=== PATIENT | female | born 1990 | race Caucasian/White ===

== ENCOUNTER → 2017-09-02 13:58 | Outpatient (CLI) | payer MEDICAID, SELFPAY ==
[2017-09-05 11:43] LABS: HPV Reflexed? NOT INDICATED
== END ==
PROVIDERS: Visit Provider Obstetrics & Gynecology
DX: Z01.419 Encounter for gynecological examination (general) (routine) without abnormal findings (principal)
CPT/HCPCS: 88175; G0145

== ENCOUNTER 2018-11-28 15:59 | Emergency (ER) | payer SELFPAY ==
[2018-11-28 16:03] VITALS: BP 144/116; PULSE 109; RESP 18; TEMP 37.1; O2SAT 97; BMI 27.3
[2018-11-28] MEDS: Lidocaine/Epi/Tetracaine 50 ML 1 APPLIC TOPICAL (17:16)
[2018-11-28 17:18] VITALS: PULSE 110; RESP 18; TEMP 37.1; O2SAT 98
--- NOTE | 2018-11-28 18:16 | ED.DCSUM_ITS ---
- ER Visit Summary Date of Service: 11/28/18 Chief Complaint: Left facial swelling and pain after popping a facial pimple History of Present Illness: The patient is a 28 F that she has small pimple in her left face for approximately a week. She popped it today and now has more pain and swelling of her face. No fever. No trouble swallowing or breathing. No chills. No headache. Physical Examination: Well-appearing female no acute distress vital signs stable and afebrile. HEENT exam shows facial swelling her left cheek. There is really no cellulitis. Pupils round reactive eyes are intact. There is no involvement of the eye or the eye socket. She did close her mouth and a difficulty. No trouble breathing swallowing neck nontender no lymphadenopathy. There is tenderness to her left side of her face. Lungs clear to auscultation bilaterally. Heart regular rhythm no murmur. Abdomen soft nontender. Moving all 4 extremities. Neurologically awake and alert. Test Results: None Emergency Department Course and Treatment: Discussed with the patient I think this is just soft tissue swelling and infection from the acne. She wants me to attempt to drain and I explained to her that I am happy to try but only expect her to be much of a pus pocket. Or a subcu abscess. Let was applied to the area. Area was cleaned. I injected about 3 6 cc of lidocaine. Made a small stab wound with a 11 blade scalpel. There was minimal pus was mostly blood. Most of this is hematoma from her squeezing the skin and also soft tissue infection. Treatment Plan: Patient given 2 Vicodin here for pain. Started on Keflex and Bactrim. Some both Keflex and Bactrim for 10 days. Patient Motrin and Cuttyhunk for pain. Warm compresses. And follow-up with her primary care physician [facility] practice next week return if worse. Disposition: Discharge Impression: Left facial soft tissue infection I&D by ER This note was generated with [employer] dictation software. It may contain incorrect words, spelling, and punctuation that were not noted in review of the chart prior to signing ED Disposition - Plan for ED Patient: Referrals: Care Physician,No Primary [Primary Care Provider] -
--- NOTE | 2018-11-28 18:19 | DCINST.ED_ITS ---
ED Disposition - Plan for ED Patient: Disposition: Home or Assisted Living Instructions: Cellulitis Prescriptions: Smz/Tmp Ds [Bactrim Ds] 1 tab PO BID #20 tab Prescription Printed Cephalexin [Keflex] 500 mg PO Q6 #40 cap Prescription Printed Hydrocodone Bitart/Apap 5-325 [[place] 5MG-325MG] 1 tab PO Q4H PRN PRN 2 Days #20 tab PRN Reason: Pain Prescription Printed Additional Instructions: Dear done at [facility] in the next several days. Warm compresses your face. Motrin and limited [place] for pain. Do not drive using the [place]. Do not drink using the [place]. Both Keflex and Bactrim or antibiotic she need to take for the next 10 days. Bactrim 1 pill twice a day. Keflex 1 pill 4 times a day. This should progressively get better if it is getting worse follow-up or return to the ER.
[2018-11-28] MEDS: HYDROcodone Bitartrate/Apap 5/325 Tablet PO (18:37)
[2018-11-28] MEDS: Cephalexin 250 MG Capsule 500 MG PO (18:38)
[2018-11-28] MEDS: Smz/Tmp Ds Tablet 1 TABLET PO (18:38)
== END 2018-11-28 19:01 | disposition home or self-care (01) ==
PROVIDERS: Emergency Provider Emergency Medicine
DX: L03.211 Cellulitis of face (principal); Z72.0 Tobacco use
CPT/HCPCS: 10060; 99283

== ENCOUNTER 2018-12-01 12:38 | Inpatient (IN) | payer SELFPAY ==
[2018-12-01 12:40] VITALS: BP 130/81; PULSE 122; RESP 16; TEMP 36.9; O2SAT 98; BMI 27.4
--- NOTE | 2018-12-01 12:58 | CT_ITS ---
STUDY: CT FACIAL BONES WITH CONTRAST REASON FOR EXAM: Female, 28 years old. Left facial swelling. RADIATION DOSAGE (If Supplied By Facility): CTDIvol = ( 33.45 ) mGy, DLP = ( 637.51 ) mGycm TECHNIQUE: The patient was scanned in a multi detector CT scanner. Transaxial imaging was performed following the intravenous administration of 75 IV Isovue 370. Sagittal and coronal images were reconstructed. Individualized dose optimization techniques were used for this CT. COMPARISON: None. FINDINGS: Diffuse subcutaneous edema overlying the left facial region with overlying skin thickening. Focal phlegmon is seen overlying the left masseter muscle although no focal abscess is present at this time. Normal orbital castillo and orbital contents. Normal nasal bones and anterior nasal spine. Normal facial bones. There is no demonstrated fracture. Partial opacification of the left maxillary sinus. Mucosal thickening of the ethmoid sinuses. CT/Sinus/Facial Bone WITH Contras IMPRESSION: Soft tissue swelling overlying the left facial region with a focal phlegmon overlying the left anterior mesentery muscle. This is suggestive of a cellulitis. No drainable abscess is seen at this time. Electronically Signed: Blu Jang, at 15:07 EDT , Service support ,
--- NOTE | 2018-12-01 13:00 | ED.VIS.GEN ---
History of Present Illness Chief Complaint: Abscess Informant: Patient Onset: Days - 3 Context: Gradual Onset Timing: Continuous Quality: pain Location: left face Current Severity: Severe Maximum Severity: Severe Worsened by: palpation Relieved by: nothing Associated Symptoms: purulent d/c. no systemic sx or fevers. Narrative: Patient seen here 2 days ago where she had aspiration of this area with a scant amount of purulent material, placed on cephalexin and Bactrim which she has been taking since it was prescribed 2 days ago. Despite this, she has had worsening of the area to a significant degree with swelling progressing around her left eye and over toward the other side of her face. She has had no dental pain or tooth issues. She states it started with a pimple on her face. Past Medical History - Allergies and Home Meds Allergies/Adverse Reactions: Allergies No Known Allergies Allergy (Verified 12/01/18 12:42) Primary Care Physician: Care Physician,No Primary [Primary Care Provider] - Past Medical History: None Smoking Status: Current every day smoker Drugs: None Review of Systems General: Denies: Chills, Fever Eyes: Denies: Visual changes - bilaterally, Diplopia ENT: Reports: - - Left facial pain, swelling. Denies: Rhinorrhea, Sore throat Cardiovascular: Denies: Chest pain, Palpitations Respiratory: Denies: Dyspnea, Cough, Dyspnea on exertion Gastrointestinal: Denies: Abdominal pain, Nausea, Vomiting, Diarrhea, Melena, Hematochezia Genitourinary: Denies: Dysuria, Hematuria, Frequency Musculoskeletal: Denies: Back pain, Extremity Pain Skin: Reports: Abscess. Denies: Rash, Wounds Neurological: Denies: Headache, Weakness, Numbness Physical Exam Vital Signs/Narrative: Vital Signs Temp Pulse Resp BP Pulse Ox 12/01/18 12:40 98.4 F 122 H 16 130/81 H 98 Inital Vital Signs reviewed: Yes General: Well nourished, Well developed, No Acute Distress Head: Normocephalic, Atraumatic Eyes: Perrl, EOMI ENT: Moist mucous membranes, No rhinorrhea, - - Obvious cutaneous abscess left mid face/cheek, actively draining purulent material, indurated, pointing. Difficult to discern exact extent, progresses toward left eye, there is periorbital swelling and erythema throughout the left face, the jaw is spared. + trismus, no dental tenderness. Neck: Supple, Nontender Cardiovascular: Regular rate, Regular rhythm, No murmurs Respiratory: No distress, CTA bilaterally, Chest nontender Abdomen: Soft, Nontender, Nondistended, Normal bowel sounds Back: Nontender, Normal Inspection Extremities: Nontender, No edema Skin: - - erythemetous tender abscess left midface Neurological: Alert, Oriented x3, Cranial nerves II-XII grossly intact, Normal Strength, Normal Sensation, Normal Gait Psychological: Tearful Diagnostic/Tx/Re-eval - Medical Decision Making This is a large facial abscess that is likely MRSA and has grown quickly despite being on appropriate antibiotic treatment/therapy. I am concerned about cosmetics, as well as the patient tolerating the necessary incision and drainage this will require. This reason I think she will be better served in the operating room, I discussed with Dr. Espinal with plastics who agrees, and will admit her. He requests IV contrasted CT which is being obtained in addition to blood work and IV vancomycin empirically. She is not clinically septic and is clinically stable. ED Disposition - Plan for ED Patient: Disposition: Acute Care Hospital [facility] Diagnosis: Cutaneous abscess of face, Failure of outpatient treatment
[2018-12-01] MEDS: Morphine 4 MG/ML Syringe IV (13:22)
[2018-12-01] MEDS: Ondansetron 4 MG/2 ML Vial IV (13:22)
--- NOTE | 2018-12-01 13:22 | CASEMGMT ---
RN CM Assessment Introduced role of RN CM to patient.? Patient is alert, oriented and able?to participate in RN CM Assessment. ?Patient currently in pain during assessment answering questions with short answers. Care providers, pharmacy, and demographics verified. Presentation: Left face- started with pimple on her face and seen in ER 11/28/18- had an aspiration to the area with scant amount Purulent drainage and placed on Cephalexin and Bactrim. Has been taking it since prescribes, however c/o worsening to the area with significant swelling progressing around Lt eye and over toward other side of face. Re-Admit: No. ER 11/28/18 for Lt face Cellulitis Barriers/Issues: Patient states does not have Health Insurance PCP: [facility] has a PCP at [facility] Specialists: None Preferred Pharmacy: [facility] Insurance: None Rx Benefit: None? LNOK: None addressed at this time LW/HPOA: None, Denies offered information Living Arrangements:?Lives with aunt in a 2 story home, patient Bedroom on [facility], 3-4 steps to enter. ADL?s: Independent with ambulation and ADLs Transportation: Patient normally walks or family/friends. Upon DC- Family or friends. DME: None HHC: None SNF: None Goal: Home, Aware CM remains available for any emerging needs. DC PLAN: Home, SW/CM to f/u for assistance re: No health Insurance. CHRISTELLE Ho
[2018-12-01 13:47] LABS: Absolute Lymphocyte Count 2.37 X10^3/uL (0.83-4.51); Absolute Neutrophil Count 7.8 X10^3/uL (2.0-7.7); Basophil# 0.04 X10^3/uL; Basophil% 0.4 % (0-1); Eosinophil# 0.26 X10^3/uL; Eosinophils% 2.3 % (0-5); Hematocrit 45.4 % (37-47); Hemoglobin 14.7 g/dL (12.0-15.0); Lymphocyte # 2.37 X10^3/ul (4.0); Lymphocyte % 21.1 % (19-41); Mean Corp Hgb Conc 32.4 g/dL (32-36); Mean Corpuscular Hgb 29.5 pg (27.0-32.0); Mean Corpuscular Volume 91.2 fL (81-99); Mean Platelet Vol. 8.9 fl (6.2-12.0); Monocyte# 0.69 X10^3/uL; Monocyte% 6.1 % (0-10); NRBC Flagged by Analyzer 0 % (0-5); Neutrophil # 7.81 X10^3/uL (2.7-7.7); Neutrophil % 69.6 % (47-70); Platelet Count 308 K/mm3 (150-450); RBC Distribution Width CV 14.1 % (11.6-14.6); RBC Distribution Width SD 47.2 fl (35.1-43.9); Red Blood Count 4.98 M/mm3 (4.2-5.4); White Blood Count 11.2 K/mm3 (4.4-11.0)
[2018-12-01 13:55] LABS: Anion Gap 2 (5-15); BUN 15 mg/dL (7-18); BUN/Creat Ratio 18.9 RATIO (10-20); Calcium,Total 9.2 mg/dL (8.5-10.1); Chloride 102 mmol/L (98-107); Creatinine, Serum 0.79 mg/dL (0.55-1.02); EST Glomerular Filtration Rate 92 mL/min (>60); Est Glom Filt Rate - Afr Amer 111 mL/min (>60); Glucose 80 mg/dL (74-106); Potassium 4.1 mmol/L (3.5-5.1); Sodium Level 136 mmol/L (136-145)
[2018-12-01 14:34] VITALS: BMI 27.5
[2018-12-01 15:23] VITALS: BMI 26.9
[2018-12-01 15:27] VITALS: BP 107/50; PULSE 80; RESP 14; TEMP 36.8; O2SAT 99
[2018-12-01] MEDS: Lactated Ringers 1,000 ML 60 ML IV (15:39)
[2018-12-01] MEDS: HYDROmorphone 1 MG/ML Syringe IV ×2 (16:10→21:13)
--- NOTE | 2018-12-01 16:17 | PCM.RX.CS ---
Consult Pharmacy has been consulted to manage selected antiobiotic: Vancomycin Type of Consult: New start Suspected Infection: Skin/Soft tissue Prior Doses of Antibiotics Received/Current Regimen: Received 1250mg IV x1 in E.R. today at 13:24 Labs: Sodium 136 mmol/L (136-145) 12/01/18 13:10 Potassium 4.1 mmol/L (3.5-5.1) 12/01/18 13:10 Chloride 102 mmol/L (98-107) 12/01/18 13:10 Carbon Dioxide 32.0 mmol/L (21.0-32.0) 12/01/18 13:10 2 (5-15) L 12/01/18 13:10 BUN 15 mg/dL (7-18) 12/01/18 13:10 0.79 mg/dL (0.55-1.02) 12/01/18 13:10 Est GFR (MDRD) Af Amer 111 mL/min (>60) 12/01/18 13:10 Est GFR (MDRD) Non-Af 92 mL/min (>60) 12/01/18 13:10 18.9 RATIO (10-20) 12/01/18 13:10 Glucose 80 mg/dL (74-106) 12/01/18 13:10 Weight used for dosin.6 kg Estimated Creatinine Clearance: 111 ml/min Goal Trough: 10-15 mcg/mL Pharmacy Plan for Drug Dosing: Continue therapy with 1250mg IV q12h to start 12 hours after the E.R. dose. Obtain a trough level before the 4th total dose. Pharmacy Service will continue to monitor and adjust dosing as required. Follow-Up Labs: Trough Vancomycin Labs to be done on [date and time ordered]: 12/03/18 00:30
--- NOTE | 2018-12-01 17:45 | PCM.HP.STD ---
History of Present Illness Date of Admission: 12/01/18 Chief Complaint: left cheek abscess, failed outpatient therapy. The patient is a 28 year old F who presented to the ED with increased redness and pain and swelling left cheek that started a few days ago. She states she had a pimple on her left cheek that she scratched and it subsequently enlarged. She went to the ED 2 days ago where an incision and drainage was attempted. A scant amount of purulent material was expressed. She was placed on Cephalexin and Bactrim. Despite these antibiotics, she had worsening symptomatology which prompted her trip to the ED. WBC was 11.2. Because of her worsening symptomatology it was felt she needed admission to the hospital and IV antibiotics since she failed outpatient therapy. Vancomycin was started. A CT of the face was done which showed a phlegmon over the masseter. No obvious abscess seen. She denies fever. She denies trauma. She denies dental pain or tooth issues. I was asked to evaluate this patient for surgical options for treatment. Past Medical History Past Medical History (Chronic Problems): Chronic Problems Smoker (Chronic) Allergies No Known Allergies Allergy (Verified 12/01/18 12:42) Home Medications: Ambulatory Orders Medication Instructions Recorded Ibuprofen 400 mg PO Q4H PRN PRN 12/01/18 Smz/Tmp Ds [Bactrim Ds] 1 tab PO BID 12/01/18 Diazepam [Valium] 5 mg PO TID PRN #20 tab 12/03/18 Docusate Sodium [Colace] 100 mg PO BID #60 cap 12/03/18 Doxycycline 100 mg PO BID #28 cap 12/03/18 hydrocodone 5 mg-acetaminophen 325 1 tab PO Q4H PRN PRN 7 Days #40 tab 12/04/18 mg tablet Surgical History: no surgical history Psychiatric History: No pertinent psych hx 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 Denies: Chills, Fever, Weight Change Eyes: Denies: Pain HEENT: Denies: Ear Pain, Nasal Congestion, Sore Throat Cardiovascular: Denies: Chest Pain Respiratory: Reports: - - patient is a smoker.. Denies: Cough Gastrointestinal: Denies: Constipation, Diarrhea, Nausea, Vomiting Genitourinary: Denies: Frequency, Hematuria Musculoskeletal: Denies: Back Pain, Foot Pain, Leg Pain, Neck Pain Skin: Reports: - - has left cheek abscess with pururlent drainage. The mass is indurated. There is surrounding redness and swelling. Tender to palpation. Left periorbital tissue is swollen. Can open her left eye just a little bit. Neurological: Reports: - - has an asymmetric smile on the left secondary to the swelling from the infection.. Denies: Headaches Endocrine: Denies: Heat/ Cold Intolerance, Polydipsia, Polyuria Hematologic/ Lymphatic: Denies: Anemia, Easy Bruising, Hx of blood clot VTE Information - Inpt Only VTE Present on Admission: No VTE Mechan Device Prophylaxis: SCD's VTE Pharm Prophylaxis ordered?: No - Physical Exam General: Alert, Oriented x3 HEENT: PERRLA, EOMI Oral: Moist Mucosa, - - no obvious periodontal disease. No teeth pain. occlusion intact. Neck: Supple, No Nodes Lungs: Clear to auscultation Cardiovascular: Regular rate, Regular Rhythm Abdomen: Soft, Non-Distended Extremities: No clubbing, No cyanosis, No edema Skin: - - left cheek abscess with some purulent drainage. Ulcerated area has some induration. Measures 2 cm. Surrounding redness and swelling and tenderness. Additional 5 cm. Some left periorbital swelling. Lymphatic: - - no cervical adenopathy. Neurological: Cranial nerves II-XII grossly intact - except for left buccal branch of facial nerve as there is some asymmetry in her smile probably from surrounding swelling from the infection. Psych/Mental Status: Normal Affect, Appropriate Vital Signs Temp Pulse Resp BP Pulse Ox 98.3 F 80 14 107/50 L 99 12/01/18 15:27 12/01/18 15:27 12/01/18 15:27 12/01/18 15:27 12/01/18 15:27 Oxygen Delivery Method Room Air Weight: 181 lb 14.102 oz Body Mass Index (BMI) 26.9 Laboratory Tests Past 24 Hrs 12/01/18 12/01/18 13:10 13:10 WBC 11.2 H RBC 4.98 Hgb 14.7 Hct 45.4 MCV 91.2 MCH 29.5 MCHC 32.4 RDW Std Deviation 47.2 H RDW Coeff of Rosita 14.1 Plt Count 308 MPV 8.9 Immature Gran % (Auto) 0.500 Neut % (Auto) 69.6 Lymph % (Auto) 21.1 [place] % (Auto) 6.1 Eos % (Auto) 2.3 Baso % (Auto) 0.4 Absolute Neuts (auto) 7.8 H Absolute Lymphs (auto) 2.37 Absolute Nucleated RBC 0.00 Nucleated RBC % 0 Sodium 136 Potassium 4.1 Chloride 102 Carbon Dioxide 32.0 Anion Gap 2 L BUN 15 Creatinine 0.79 Estim Creat Clear Calc 110.80 Est GFR (MDRD) Af Amer 111 Est GFR (MDRD) Non-Af 92 BUN/Creatinine Ratio 18.9 Glucose 80 Calcium 9.2 Assessment/Plan All Active Problems Cellulitis diffuse, face (Acute) Swelling of face (Acute) Cutaneous abscess of face (Acute) Failure of outpatient treatment (Acute) Surveillance of implantable subdermal contraceptive (Acute) 1. Draining left cheek abscess with surrounding induration and cellulitis. 2. Left cheek swelling. 3. Failure of outpatient treatment. 4. Smoker. CT reviewed. Patient has worsening left cheek abscess with increasing redness and swelling and pain after a trial of po antibiotics at home. After failing outpatient therapy, it was felt she needed IV antibiotics and probable surgery intervention with surgical preparation left cheek with incision and drainage and excisional debridement abscess. Initial WBC was 11.2. Will start her on Vancomycin. Will also apply warm compresses to promote drainage. Unless dramatic improvement is seen in her symptomatology, will need operative intervention. Will plan on surgery tomorrow. Depending on what is found at surgery, emt intermediate IV antibiotics may be necessary and a PICC line would be placed. Will leave the wound open and start postop wound care with daily Silver dressings. If there is a plateau in the healing process, can proceed with delayed closure with a local skin flap reconstruction. Anticipate increased metabolic demands from the infection and from the surgery. Will check a Prealbumin and encourage nutritional supplementation with protein to help the healing process. Patient was informed of the risks and complications of the procedure including alternatives to surgery. These were discussed with the patient personally. Patient voices understanding and wishes to proceed. She understands that the would will be left open initially. Encouraged patient to stop smoking as it may have deleterious effects on wound healing. Code Visit Inpatient E&M: 84100 Init Hosp L2 - ICD-10 - L02.01, L03.211, R22.0, Z78.9, F17.200
[2018-12-01] MEDS: oxyCODONE 5 MG Tablet 10 MG PO (18:55)
[2018-12-01 21:10] VITALS: BP 121/64; PULSE 95; RESP 18; TEMP 36.8; O2SAT 96
[2018-12-01] MEDS: Docusate Sodium 100 MG Capsule PO (21:12)
[2018-12-02] VITALS (10 sets, daily range): BP systolic 99–126; BP diastolic 50–84; PULSE 65–84; RESP 12–18; TEMP 36.2–36.7; O2SAT 95–99; BMI 26.9
[2018-12-02] MEDS: oxyCODONE 5 MG Tablet 10 MG PO ×3 (01:25→16:47)
[2018-12-02] MEDS: HYDROmorphone 1 MG/ML Syringe IV ×3 (04:28→20:51)
[2018-12-02 05:07] LABS: Internal QC Validated? YES +Cl - CLEAR BKGD; Pregnancy, Urine Negative Negative
[2018-12-02 05:42] LABS: Hematocrit 40.4 % (37-47); Hemoglobin 12.8 g/dL (12.0-15.0); Mean Corp Hgb Conc 31.7 g/dL (32-36); Mean Corpuscular Hgb 29.2 pg (27.0-32.0); Mean Corpuscular Volume 92.2 fL (81-99); Mean Platelet Vol. 8.8 fl (6.2-12.0); Platelet Count 259 K/mm3 (150-450); RBC Distribution Width CV 13.6 % (11.6-14.6); RBC Distribution Width SD 46.6 fl (35.1-43.9); Red Blood Count 4.38 M/mm3 (4.2-5.4); White Blood Count 7.6 K/mm3 (4.4-11.0)
[2018-12-02 05:43] LABS: Erythrocyte Sedimentation Rate 33 mm/hr (0-20)
[2018-12-02 06:22] LABS: ALB/GLOB Ratio 0.7 RATIO (0.9-2.4); AST(SGOT) 11 U/L (15-37); Alanine Aminotransfer ALT/SGPT 22 U/L (13-56); Albumin, Serum 2.8 g/dL (3.2-5.0); Alkaline Phosphatase 69 U/L (45-117); Anion Gap 8 (5-15); BUN 16 mg/dL (7-18); BUN/Creat Ratio 24.2 RATIO (10-20); Calcium,Total 8.7 mg/dL (8.5-10.1); Chloride 100 mmol/L (98-107); Creatinine, Serum 0.66 mg/dL (0.55-1.02); EST Glomerular Filtration Rate 113 mL/min (>60); Est Glom Filt Rate - Afr Amer 136 mL/min (>60); Estimated Creatinine Clearance 128.02 ml/min; Globulin 4.3 g/dL (2.2-4.2); Glucose 92 mg/dL (74-106); Potassium 4.6 mmol/L (3.5-5.1); Protein, Total 7.1 g/dL (6.4-8.2); Sodium Level 137 mmol/L (136-145)
[2018-12-02] MEDS: Lactated Ringers 1,000 ML 60 ML IV (08:44)
[2018-12-02] MEDS: Docusate Sodium 100 MG Capsule PO ×2 (08:44→22:22)
[2018-12-02] MEDS: 0.9% NaCl Peripheral Flush Adult/Peds IV (08:44)
--- NOTE | 2018-12-02 09:31 | CASEMGMT ---
SW spoke with patient briefly as she was sleeping and SW woke her up. She said she is staying in [place] and she is in the process of moving to [place] from [place]. She has not completed a Medicaid application. SW gave her a Medicaid application to complete and told her to let the nurse know when she is done or ask for SW. MARLIN explained she may have IV antibiotics at d/c and she will need Medicaid to assist with cost. Roxanna REEVES LEAD WEB DEVELOPER
--- NOTE | 2018-12-02 11:49 | NURSING ---
report called to COLLEEN CAMPBELL
--- NOTE | 2018-12-02 13:00 | ABS_PTH ---
PATIENT: TRISTON RIDER LOC: PCU U#:[id number] AGE/SX: 28/F ROOM: [facility] RE12/01/[address]: Dr. Ian Espinal MD : 1990 BED: 1 DIS: 12/03/2018 SPEC #: [id number] RECD: 12/02/18 16:32 STATUS: TAMARA RECharmaine #: [id number] CHERI: 12/02/18 13:[address]: Ian Espinal DEPT: SURGICAL PATHOLOGY RECD BY: Juvenal Maier ENTERED: 12/03/18 09:14 SP TYPE: Abscess OTHR DR: No Primary Care Phys Tissues: Cheek, NOS Procedures: Surgery Specimen Level IV HEADER OPERATION: Incision & drainage facial abscess, cheek PRE-OP DIAGNOSIS: Draining left cheek abscess with surrounding induration and cellulitis TISSUE SUBMITTED: Left cheek abscess MICROSCOPIC DIAGNOSIS Left cheek abscess, biopsy: Ulceration with associated acute and chronic inflammation, abscess formation and fat necrosis. AM:rajeev 12/04/18 MICROSCOPIC DESCRIPTION Slides are reviewed. GROSS DESCRIPTION Received in fixative is one container labeled with the patient's name and designated left cheek abscess. The specimen consists of an irregular fragment of skin with attached yellow fatty tissue measuring 1.5 x 1 cm and a depth of excision measuring 1.2 cm. The specimen is inked, sectioned and totally submitted in two cassettes. / AM:rajeev 12/03/18 TC:2 CPT: 33218
--- NOTE | 2018-12-02 13:52 | OP.PCM_ITS ---
Report of Operation Date of Procedure: 12/02/18 Pre-Operative Diagnosis: 1. Draining left cheek complex abscess with surr ounding induration and cellulitis. 2. Left cheek swelling. 3. Failure of outpatient treatment. 4. Smoker. Post-Operative Diagnosis: Same. Surgery/Procedure Performed:: Surgical preparation left cheek with incision and drainage and excisional debridement complex abscess (4.05 cm2). Description of Surgical Findings:: The patient is a 28 year old F who presented to the ED with increased redness and pain and swelling left cheek that started a few days ago. She states she had a pimple on her left cheek that she scratched and it subsequently enlarged. She went to the ED 2 days ago where an incision and drainage was attempted. A scant amount of purulent material was expressed. She was placed on Cephalexin and Bactrim. Despite these antibiotics, she had worsening symptomatology which prompted her trip to the ED. WBC was 11.2. Because of her worsening symptomatology it was felt she needed admission to the hospital and IV antibiotics since she failed outpatient therapy. Vancomycin was started. A CT of the face was done which showed a phlegmon over the masseter. No obvious abscess seen. She denies fever. She denies trauma. She denies dental pain or tooth issues. I was asked to evaluate this patient for surgical options for treatment. Patient was informed of the risks and complications of the procedure including alternatives to surgery. These were discussed with the patient personally. Patient voices understanding and wishes to proceed. Encouraged patient to stop smoking as it may have deleterious effects on wound healing. Size of defect left cheek - 2.7 x 1.5 x 1 cm. statistical methods teacher: Garland Toscano. Type of Anesthesia:: General Specimen's removed: 1. Abscess left cheek to Pathology and Microbiology. 2. MRSA Wound DNA by PCR. Drains: None. Estimated Blood Loss (mL): 10 ml. Description of Procedure: Patient was taken to OR in supine position and was placed under general anesthesia. The left cheek area was prepped and draped in the usual fashion. SCD's were placed for DVT prophylaxis. Perioperative antibiotics were given intravenously. Using xylocaine with epinephrine, the left cheek area was infiltrated for postop pain relief. After waiting 5 minutes for the anesthetic to take effect, I made an incision around the area of greatest fluctuance and drainage. A fair amount of pus was seen. The pus was thick usually indicative of MRSA. A MRSA Wound DNA by PCR was done today. There was extensive fat necrosis and induration that extended superiorly and deeply into the facial musculature. This tissue was excised and debrided. The debridement extended down to the muscle. A curette was also used to debride exudate off the muscle. Due to the extensive amount of superiorly undermining, I extended the incision a little bit superiorly. I was conservative with the incision because it was on her face. Will see how much of the undermined area heals and what if any of the areas need further excision and debridement. Tissue debrided from the left cheek abscess was sent to Pathology for analysis to rule out carcinoma and to Microbiology for culture. A positive culture may necessitate antibiotic modification. The wound was irrigated with saline. Hemostasis was obtained with electrocautery. The size of the left cheek defect after incision and drainage and excisional debridement complex abscess was 2.7 x 1.5 x 1 cm or 4.05 cm2. The abscess wound was then dressed with Aquacel Silver followed by moistened 2x2 gauze followed by dry gauze dressing. Patient tolerated the procedure well and was sent to PACU in satisfactory condition. Patient will be sent upstairs for continued postop care. She will continue the Vancomycin and Zosyn until the culture results are back. If the MRSA screen shows positive for MRSA, will either continue the Vancomycin IV at home or send her home on po Doxycycline. Once the inflammation subsides and the infection is under control, may consider delayed closure with skin grating or skin flap reconstruction. Grafts/Implants Used: None. - Complications None. - Admit VTE Documentation VTE Present on Admission: No VTE Mechan Device Prophylaxis: SCD's VTE Pharm Prophylaxis ordered?: No Code Visit Surgery Charges CPT - 85125 ICD-10 - L02.01, R22.0, L03.211, A49.02, S01.402A, Z78.9, F17.200 43160 L02.01, R22.0, L03.211, A49.02, S01.402A, Z78.9, F17.200
[2018-12-02 15:23] LABS: Probe Check PASS; Staph aureus DNA By PCR POSITIVE (Negative)
[2018-12-02 15:24] LABS: M R Staph aureus DNA By PCR POSITIVE (Negative)
[2018-12-03 01:04] LABS: Vancomycin, Trough Level 1.5 ug/mL (5.0-15.0)
[2018-12-03 04:25] VITALS: BP 118/65; PULSE 67; RESP 18; TEMP 37; O2SAT 95
[2018-12-03] MEDS: Lactated Ringers 1,000 ML 60 ML IV (05:42)
[2018-12-03 06:01] LABS: Hemoglobin 11.9 g/dL (12.0-15.0); Mean Corp Hgb Conc 33.1 g/dL (32-36); Mean Corpuscular Hgb 28.9 pg (27.0-32.0); Mean Corpuscular Volume 87.4 fL (81-99); Mean Platelet Vol. 8.7 fl (6.2-12.0); Platelet Count 286 K/mm3 (150-450); RBC Distribution Width SD 41.4 fl (35.1-43.9); Red Blood Count 4.12 M/mm3 (4.2-5.4); White Blood Count 11.7 K/mm3 (4.4-11.0)
[2018-12-03 06:14] LABS: Anion Gap 6 (5-15); BUN 17 mg/dL (7-18); BUN/Creat Ratio 30.4 RATIO (10-20); Calcium,Total 8.5 mg/dL (8.5-10.1); Chloride 104 mmol/L (98-107); Creatinine, Serum 0.56 mg/dL (0.55-1.02); EST Glomerular Filtration Rate 137 mL/min (>60); Est Glom Filt Rate - Afr Amer 166 mL/min (>60); Estimated Creatinine Clearance 150.88 ml/min; Glucose 105 mg/dL (74-106); Potassium 4.2 mmol/L (3.5-5.1); Sodium Level 138 mmol/L (136-145)
[2018-12-03 08:31] VITALS: BP 115/62; PULSE 85; RESP 16; TEMP 36.2; O2SAT 100
[2018-12-03] MEDS: Docusate Sodium 100 MG Capsule PO (08:40)
[2018-12-03] MEDS: oxyCODONE 5 MG Tablet 10 MG PO ×2 (08:40→20:57)
[2018-12-03 11:58] VITALS: BP 103/39; PULSE 82; RESP 16; TEMP 36.2; O2SAT 98
[2018-12-03 12:48] LABS: Vancomycin, Trough Level 9.3 ug/mL (5.0-15.0)
[2018-12-03 15:02] VITALS: BP 116/62; PULSE 83; RESP 16; TEMP 36.2; O2SAT 100
[2018-12-03] MEDS: HYDROmorphone 1 MG/ML Syringe IV (15:31)
--- NOTE | 2018-12-03 16:17 | PCM.RX.CS ---
Consult Pharmacy has been consulted to manage selected antiobiotic: Vancomycin Type of Consult: Follow-up Suspected Infection: Skin/Soft tissue Prior Doses of Antibiotics Received/Current Regimen: VANCOMYCIN 1250MG IV Q12HR: 12/03 @0242, 12/03@1242 Labs: Sodium 138 mmol/L (136-145) 12/03/18 05:40 Potassium 4.2 mmol/L (3.5-5.1) 12/03/18 05:40 Chloride 104 mmol/L (98-107) 12/03/18 05:40 Carbon Dioxide 28.0 mmol/L (21.0-32.0) 12/03/18 05:40 6 (5-15) 12/03/18 05:40 BUN 17 mg/dL (7-18) 12/03/18 05:40 0.56 mg/dL (0.55-1.02) 12/03/18 05:40 Est GFR (MDRD) Af Amer 166 mL/min (>60) 12/03/18 05:40 Est GFR (MDRD) Non-Af 137 mL/min (>60) 12/03/18 05:40 30.4 RATIO (10-20) H 12/03/18 05:40 Glucose 105 mg/dL (74-106) 12/03/18 05:40 Vancomycin Trough 9.3 ug/mL (5.0-15.0) 12/03/18 12:05 Goal Trough: 10-15 mcg/mL Pharmacy Plan for Drug Dosing: The patient had a trough drawn which resulted in a value of 9.3 (drawn ~9.5hrs from last administered dose). The patient has a trough goal of 10-15. Will plan to decrease dose and increase frequency and recheck a trough in 4 doses. PLAN/RECOMMENDATIONS 1. Vancomycin 1000mg IV Q8hrs to start 12/03 @2099 2. Trough prior to 4th dose of new regimen 12/04 @2029 3. Pharmacy Service will continue to monitor and adjust dosing as required.
--- NOTE | 2018-12-03 17:39 | PCM.PN.SRG ---
Subjective: Postop #1 Patient complains of left cheek wound pain. Tolerated the silver dressing change reasonably well. Needed IV analgesia. - Physical Exam General: Alert, Oriented x3 HEENT: PERRLA, EOMI Oral: Moist Mucosa Neck: Supple Lungs: Clear to auscultation Cardiovascular: Regular rate, Regular Rhythm Abdomen: Soft, Non-Distended Skin: Ulcer/ Wound - left cheek wound is stable. No active bleeding seen. Less induration noted. Less redness seen. Cheek is soft. No evidence of further infection at this time. Neurological: Cranial nerves II-XII grossly intact Psych/Mental Status: Normal Affect, Appropriate Vital Signs Temp Pulse Resp BP Pulse Ox 97.2 F L 83 16 116/62 100 12/03/18 15:02 12/03/18 15:02 12/03/18 15:02 12/03/18 15:02 12/03/18 15:02 Oxygen Delivery Method Room Air Weight: 181 lb 14.102 oz Body Mass Index (BMI) 26.9 Intake and Output for Last 24 Hours 12/01/18 12/02/18 12/03/18 23:59 23:59 23:59 Intake Total 1125.9 / 1125.9 1726.5 / 1726.5 2985.2 / 2985.2 Balance 1125.9 / 1125.9 1726.5 / 1726.5 2985.2 / 2985.2 Laboratory Tests Past 24 Hrs 12/03/18 12/03/18 12/03/18 00:33 05:40 05:40 WBC 11.7 H RBC 4.12 L Hgb 11.9 L Hct 36.0 L MCV 87.4 MCH 28.9 MCHC 33.1 RDW Std Deviation 41.4 RDW Coeff of Rosita 13.0 Plt Count 286 MPV 8.7 Sodium 138 Potassium 4.2 Chloride 104 Carbon Dioxide 28.0 Anion Gap 6 BUN 17 Creatinine 0.56 Estim Creat Clear Calc 150.88 Est GFR (MDRD) Af Amer 166 Est GFR (MDRD) Non-Af 137 BUN/Creatinine Ratio 30.4 H Glucose 105 Calcium 8.5 Vancomycin Trough 1.5 L 12/03/18 12:05 WBC RBC Hgb Hct MCV MCH MCHC RDW Std Deviation RDW Coeff of Rosita Plt Count MPV Sodium Potassium Chloride Carbon Dioxide Anion Gap BUN Creatinine Estim Creat Clear Calc Est GFR (MDRD) Af Amer Est GFR (MDRD) Non-Af BUN/Creatinine Ratio Glucose Calcium Vancomycin Trough 9.3 Medical Necessity - Tobacco Use Smoking Status: Current every day smoker Tobacco Use: Cigarettes Assessment/Plan All Active Problems MRSA (methicillin resistant Staphylococcus aureus) infection (Acute) Abscess of left external cheek (Acute) Cellulitis diffuse, face (Acute) Swelling of face (Acute) Cutaneous abscess of face (Acute) Failure of outpatient treatment (Acute) Surveillance of implantable subdermal contraceptive (Acute) 1. Draining left cheek abscess with surrounding induration and cellulitis. 2. Left cheek swelling. 3. Failure of outpatient treatment. 4. Smoker. 5. MRSA. The left cheek wound is stable. No active bleeding seen. The wound was redressed with Aquacel Silver. She tolerated reasonably well with some pain. Needed IV analgesia. MRSA Wound DNA by PCR was positive for MRSA. Will send her home on Doxycycline. Patient wants to go home today. She states her significant other can do the Silver dressing changes daily. If not she can followup in office tomorrow for a silver dressing change. The operative culture is pending. She understands that if the operative culture shows something in addition to the MRSA that needs IV antibiotics or if the wound healing worsens with the po antibiotics, then she would come back into the hospital for placement of a PICC line and starting IV antibiotics. She is aware of that possibility and voices understanding. Wrote script for Doxycycline for the MRSA (28 tabs) with 2 refills. Wrote scripts for Casanova for pain (40 tabs) and for Valium for spasm (20 tabs). Wrote script for Colace for constipation (60 tabs). Keep head elevated. Patient may cleanse the wound with soap and water at the time of the silver dressing changes. Discharge home today. Followup office tomorrow 12/04/18 for a silver dressing change. Encouraged patient to stop smoking as it may have deleterious effects on wound healing. Code Visit Inpatient E&M: 26589 Disch Hosp - ICD-10 - L02.01, L03.21, A49.02, R22.0, Z78.9, F17.200
--- NOTE | 2018-12-03 20:23 | DCINST_ITS ---
- Discharge Diagnoses Current Active Problems: Current Active and Chronic Problems Cutaneous abscess of face (Acute) Failure of outpatient treatment (Acute) You will use the following diet at home:: No restrictions, Other - encourage nutritional supplementation with protein to help the healing process. Discharge Activity: May not drive while taking narcotic pain medications., - - keep head elevated. no heavy lifting. May shower in (days): 2 - at the time of the dressing changes. May resume sexual activity in: No Restrictions Ice area for (Minutes): 5 - as needed for swelling. Weight Bearing Status: Weight bearing as tolerated Lifting Restrictions: 20 lbs. Keep extremity elevated above heart level: - - elevate head. Call your doctor if your incision/area has: Continuous Slow Oozing, Sudden Increased Bleeding, Increased Pain/ Swelling, Increased Redness, Foul Smelling Discharge, Swelling at the incision site Call your doctor if you observe: Fever of 101 or Higher, Coldness, Increased Pain, Shortness of breath, Chest pain, Calf discomfort, Uncontrolled pain Suture Line Care: - - daily dressing changes with aquacel silver. Change Dressing in (Days):: 1 - aquacel silver dressing changes daily. Cleanse incision/area with: Soap & Water - at the time of the silver dressing changes. Allergies/Adverse Reactions: Allergies No Known Allergies Allergy (Verified 12/01/18 12:42) Medications to take at Discharge Ibuprofen 400 mg PO Q4H PRN PRN 12/01/18 Smz/Tmp Ds [Bactrim Ds] 1 tab PO BID 12/01/18 Diazepam [Valium] 5 mg PO TID PRN #20 tab 12/03/18 Docusate Sodium [Colace] 100 mg PO BID #60 cap 12/03/18 Doxycycline 100 mg PO BID #28 cap 12/03/18 Hydrocodone Bitart/Apap 5-325 [[place] 5/325] 1 tab PO Q4H PRN PRN 7 Days #40 tab 12/03/18 The following prescriptions were given: Docusate Sodium [Colace] 100 mg PO BID #60 cap Prescription Printed Doxycycline 100 mg PO BID #28 cap Prescription Printed Hydrocodone Bitart/Apap 5-325 [[place] 5/325] 1 tab PO Q4H PRN PRN 7 Days #40 tab PRN Reason: Pain Diazepam [Valium] 5 mg PO TID PRN #20 tab PRN Reason: Spasms Primary Care Physician: Care Physician,No Primary [Primary Care Provider] - Test Results: Test results from this visit will be discussed in further detail at your follow- up appointment, if applicable. Please Follow Up With: Ian Espinal MD When: tomorrow 12/04/18. call [phone] for appt. Proposed Discharge Date: 12/03/18
[2018-12-03 21:00] VITALS: BP 114/69; PULSE 89; RESP 18; TEMP 36.9; O2SAT 97
--- NOTE | 2018-12-03 23:22 | PCM.DC.SUM ---
Discharge Date and Diagnosis Date of Admission: 12/01/18 Date of Discharge: 12/03/18 - Primary Discharge Diagnosis Draining left cheek complex abscess with surrounding induration and cellulitis. Left cheek swelling. Failure of outpatient treatment. MRSA. - Secondary Discharge Diagnosis Smoker. Hospital Course and Treatment Imaging Results: Diagnostic Data Facial/Sinus 12/01/18 12:58 IMPRESSION: Soft tissue swelling overlying the left facial region with a focal phlegmon overlying the left anterior mesentery muscle. This is suggestive of a cellulitis. No drainable abscess is seen at this time. Electronically Signed: Blu Jang, at 15:07 EDT , Service support , CONSULTATIONS None. Operations: - - 12/02/18 - Surgical preparation left cheek with incision and drainage and excisional debridement complex abscess (4.05 cm2). Procedures: None Summary of Care Provided: The patient is a 28 year old F who presented to the ED with increased redness and pain and swelling left cheek that started a few days ago. She states she had a pimple on her left cheek that she scratched and it subsequently enlarged. She went to the ED 2 days ago where an incision and drainage was attempted. A scant amount of purulent material was expressed. She was placed on Cephalexin and Bactrim. Despite these antibiotics, she had worsening symptomatology which prompted her trip to the ED. WBC was 11.2. Because of her worsening symptomatology it was felt she needed admission to the hospital and IV antibiotics since she failed outpatient therapy. Vancomycin was started. A CT of the face was done which showed a phlegmon over the masseter. No obvious abscess seen. She denies fever. She denies trauma. She denies dental pain or tooth issues. I was asked to evaluate this patient for surgical options for treatment. She was taken to surgery the next day, 12/02/18, where she underwent surgical preparation left cheek with incision and drainage and excisional debridement complex abscess (4.05 cm2). MRSA Wound DNA by PCR was positive for MRSA. The operative culture was negative at the time of discharge. The wound looked good the next day with less swelling and less redness and less induration. There was no further evidence of infection at the time of the Silver dressing change. The patient stated her significant other can do the Silver dressing changes and wanted to go home on the first postop day. So we opted to start with oral antibiotics for the treatment of MRSA. A script was written for Doxycycline. The left cheek wound is stable. No active bleeding seen. The wound was redressed with Aquacel Silver. She tolerated reasonably well with some pain. Needed IV analgesia. MRSA Wound DNA by PCR was positive for MRSA. Will send her home on Doxycycline. Patient wants to go home today. She states her significant other can do the Silver dressing changes daily. If not she can followup in office tomorrow for a silver dressing change. The operative culture is pending. She understands that if the operative culture shows something in addition to the MRSA that needs IV antibiotics or if the wound healing worsens with the po antibiotics, then she would come back into the hospital for placement of a PICC line and starting IV antibiotics. She is aware of that possibility and voices understanding. Wrote script for Doxycycline for the MRSA (28 tabs) with 2 refills. Wrote scripts for [place] for pain (40 tabs) and for Valium for spasm (20 tabs). Wrote script for Colace for constipation (60 tabs). Keep head elevated. Patient may cleanse the wound with soap and water at the time of the silver dressing changes. Discharge home today. Followup office tomorrow 12/04/18 for a silver dressing change. Encouraged patient to stop smoking as it may have deleterious effects on wound healing. - Physical Exam General: Alert, Oriented x3 HEENT: PERRLA, EOMI Oral: Moist Mucosa Neck: Supple Lungs: Clear to auscultation Cardiovascular: Regular rate, Regular Rhythm Abdomen: Soft, Non-Distended Skin: Ulcer/ Wound - left cheek wound is stable. No active bleeding seen. Less induration noted. Less redness seen. Cheek is soft. No evidence of further infection at this time. Neurological: Cranial nerves II-XII grossly intact Psych/Mental Status: Normal Affect, Appropriate Vital Signs Temp Pulse Resp BP Pulse Ox 98.4 F 89 18 114/69 97 12/03/18 21:00 12/03/18 21:00 12/03/18 21:00 12/03/18 21:00 12/03/18 21:00 Oxygen Delivery Method Room Air Weight: 181 lb 14.102 oz Body Mass Index (BMI) 26.9 Intake and Output for Last 24 Hours 12/01/18 12/02/18 12/03/18 23:59 23:59 23:59 Intake Total 1125.9 / 1125.9 1726.5 / 1726.5 2985.2 / 2985.2 Balance 1125.9 / 1125.9 1726.5 / 1726.5 2985.2 / 2985.2 Laboratory Tests Past 24 Hrs 12/03/18 12/03/18 12/03/18 00:33 05:40 05:40 WBC 11.7 H RBC 4.12 L Hgb 11.9 L Hct 36.0 L MCV 87.4 MCH 28.9 MCHC 33.1 RDW Std Deviation 41.4 RDW Coeff of Rosita 13.0 Plt Count 286 MPV 8.7 Sodium 138 Potassium 4.2 Chloride 104 Carbon Dioxide 28.0 Anion Gap 6 BUN 17 Creatinine 0.56 Estim Creat Clear Calc 150.88 Est GFR (MDRD) Af Amer 166 Est GFR (MDRD) Non-Af 137 BUN/Creatinine Ratio 30.4 H Glucose 105 Calcium 8.5 Vancomycin Trough 1.5 L 12/03/18 12:05 WBC RBC Hgb Hct MCV MCH MCHC RDW Std Deviation RDW Coeff of Rosita Plt Count MPV Sodium Potassium Chloride Carbon Dioxide Anion Gap BUN Creatinine Estim Creat Clear Calc Est GFR (MDRD) Af Amer Est GFR (MDRD) Non-Af BUN/Creatinine Ratio Glucose Calcium Vancomycin Trough 9.3 Discharge Diet: No Restrictions, - - encourage nutritional supplementation with protein to help the healing process. Discharge Activity: May not drive while taking narcotic pain medications., - - keep head elevated. no heavy lifting. May shower in (days): 2 - at the time of the dressing changes. May resume sexual activity in: No Restrictions Ice area for (Minutes): 5 - as needed for swelling. Weight Bearing Status: Weight bearing as tolerated Lifting Restrict to (lbs):: 20 Keep extremity elevated above heart level: - - elevate head. Call your doctor if your incision/area has: Continuous Slow Oozing, Sudden Increased Bleeding, Increased Pain/ Swelling, Increased Redness, Foul Smelling Discharge, Swelling at the incision site Call your doctor if you observe: Fever of 101 or Higher, Coldness, Increased Pain, Shortness of breath, Chest pain, Calf discomfort, Uncontrolled pain Suture Line Care: - - daily dressing changes with aquacel silver. Change Dressing in (Days):: 1 - aquacel silver dressing changes daily. Cleanse incision/area with: Soap & Water - at the time of the silver dressing changes. Home Medications: Medications to take at Discharge Ibuprofen 400 mg PO Q4H PRN PRN 12/01/18 Smz/Tmp Ds [Bactrim Ds] 1 tab PO BID 12/01/18 Diazepam [Valium] 5 mg PO TID PRN #20 tab 12/03/18 Docusate Sodium [Colace] 100 mg PO BID #60 cap 12/03/18 Doxycycline 100 mg PO BID #28 cap 12/03/18 hydrocodone 5 mg-acetaminophen 325 mg tablet 1 tab PO Q4H PRN PRN 7 Days #40 tab 12/04/18 Following Prescrptions Were Given to Patient: Docusate Sodium [Colace] 100 mg PO BID #60 cap Prescription Printed Doxycycline 100 mg PO BID #28 cap Prescription Printed Diazepam [Valium] 5 mg PO TID PRN #20 tab PRN Reason: Spasms Primary Care Physician: Care Physician,No Primary [Primary Care Provider] - Please Follow Up With: Ian Espinal MD When: tomorrow 12/04/18. call [phone] for appt. Disposition: Home Minutes spent on discharge:: 30 Patient Condition:: Stable Medical Necessity - Tobacco Use Smoking Status: Current every day smoker Tobacco Use: Cigarettes Meaningful Use Info Meaningful Use Diagnoses (Choose all that apply): None applicable Code Visit Inpatient E&M: 01235 Disch Hosp - ICD-10 - L02.01, L03.21, A49.02, R22.0, Z78.9, F17.200
== END 2018-12-03 21:48 | disposition home or self-care (01) | DRG 580 ==
LOC: ED 13:04 → PCU 13:20
PROVIDERS: Anesthesiology; Admitting Provider Surgery; Emergency Provider Emergency Medicine; Referring Provider Surgery; Visit Provider Surgery
PROC: 0KB10ZZ Excision of Facial Muscle, Open Approach (ICD-10-PCS; principal; 2018-12-02 12:50)
DX: L02.01 Cutaneous abscess of face (principal); L03.211 Cellulitis of face; F17.210 Nicotine dependence, cigarettes, uncomplicated
CPT/HCPCS: 36415; 70487; 80048; 80053; 80202; 81025; 85025; 85027; 85652; 86140; 87070; 87075; 87205; 87640; 88304; 88305; 97802; 99284; 99406; J7030; J7040; J7050; J7120; Q9967; A4216; J2405